=== PATIENT | female | born 2000 | race Caucasian/White ===

== ENCOUNTER 2025-09-10 18:53 | Emergency (ER) | payer OTHER, SELFPAY ==
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
[2025-09-10 19:09] VITALS: BP 134/79; PULSE 70; RESP 16; TEMP 36.5; O2SAT 98; BMI 34.0
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
--- OUTSIDE RECORDS SUMMARY | 2025-09-10 20:56 | XMS_ITS | Clinical Summary ---
Author Organization [facility] it Address [address] [place] [address] Care Team Providers Care Director Plans Name Role Phone CodybrookemadeleineMarianne burdick LUCITA Primary Care Provider Martha vailable Medications norgestimate-eth inyl estradioL (Tri-Lo-Norma) 0.18/0.215/0.25 mg-25 mcg per tablet TAKE 1 TABLET BY MOUTH DAILY 28 tablet 2 11/06/2024 Active Surgical History Surgery Date Site/Laterality Comments CHOLECYSTECTOMY 2019 PROCEDURE: ND LAPAROSCOPY SURG CHOLECYSTECTOMY; COMMENT: @ [facility] Medical History Medical History Date Comments Cholecystolithiasis DX:Cholecyst olithiasis Family History Medical History Relation Name Comments Breast cancer Maternal Grandmother No Known Problems Mother Other: Heart Attack Paternal Grandfather Lung cancer Paternal Grandmother Relation Name Status Comments Brother 1 1/2 dad side Alive Brother 2 Alive Brother 3 Alive Father Alive unknown hx Maternal Grandmother Mother Alive Paternal Grandfather Paternal Grandmother Sister 1 1/2 dad side Alive Sister 2 1/2 dad side Alive Social History Tobacco Use Types Packs/Day Years Used Date Smoking Tobacco: Never Smokeless Tobacco: Never Alcohol Use Standard Drinks/Week Comments No 0 (1 standard drink = 0.6 oz pur e alcohol) Comments Unknown Sex and Gender Information Value Date Recorded Sex Assigned at Not on file Legal Sex Female 8:27 AM EST Gender Identity Not on file Sexual Orientation Not on file Obstetrics History Last Filed Vital Signs Vital Sign Reading Time Taken Comments Blood Pressure 102/64 05/13/2023 1:39 PM EDT Pulse 65 05/13/2023 1:39 PM EDT Temperature - - Respiratory Rate - - Oxygen Saturation - - Inhaled Oxygen Concentration - - Weight 73.5 kg (162 lb) 05/13/2023 1:39 PM EDT Height 157.5 cm (5' 2 ) 05/13/2023 1:39 PM EDT Body Mass Index 29.63 05/13/2023 1:39 PM EDT Plan of Treatment Health Maintenance Due Date Last Done Comments Gonorrhea/Chlamydia Screening 2001 Meningococcal B Vaccine (2 o f 2 - Bexsero SCDM 2-dose series) 03/29/2020 09/28/2019 DTaP,Tdap,and Td Vaccines (1 - Tdap) 2020 Hepatitis B Vaccines (1 of 3 - 19+ 3-dose series) 2020 Cervical Cancer Screening: P ap Smear 2022 HIV Screening 09/12/2022 Hepatitis C Screening 09/12/2022 Social Influencers of Health Screening 09/12/2022 Depression Screening 10/10/2024 COVID-19 Vaccine (1 - 2024-2 6 season) 2025 Influenza Vaccine (#1) 2025 , 08/10/2017, 07/17/2015 RSV Immunization Adult Patients (1 - 1-dose 75+ series) 2076 HPV Vaccines Completed 07/17/2015, 12/18/2014 Hepatitis A Vaccines Completed 08/10/2017, 03/17/2016 Meningococcal ACWY Vaccine Completed 08/10/2017 HIB Vaccines Aged Out No longer eligi ble based on patient's age to complete this topic IPV Vaccines Aged Out No longer eligi ble based on patient's age to complete this topic MMR Vaccines Aged Out No longer eligi ble based on patient's age to complete this topic Pneumococcal Vaccine: Pediatrics (0 to 5 Years) and At-Risk Patients (6 to 49 Years) Aged Out No longer eligible b ased on patient's age to complete this topic RSV Immunization Patients Under 20 months Aged Out No longer eligible b ased on patient's age to complete this topic Varicella Vaccines Aged Out No longer eligible based on patient's age to complete this topic Care Teams Director Plans Relationship Specialty Start Date End Date Marianne Donis FNP [address] [place] [address] PCP - General 11/19/22
[2025-09-10 21:02] VITALS: BP 134/79; PULSE 70; RESP 16; TEMP 36.5; O2SAT 98
== END 2025-09-10 21:06 | disposition home or self-care (01) ==
PROVIDERS: Physician Assistant Medical; Emergency Provider Emergency Medicine; PCP Registered Nurse
DX: S06.0X0A Concussion without loss of consciousness, initial encounter (principal); V47.6XXA Car passenger injured in collision with fixed or stationary object in traffic accident, initial encounter; Y93.9 Activity, unspecified; Y92.411 Interstate highway as the place of occurrence of the external cause
CPT/HCPCS: 36415; 70450; 72125; 84702; 96372; 99283; 99284; J1885

== ENCOUNTER → 2025-09-10 19:10 | Outpatient (BNV) | payer OTHER, SELFPAY | PROVIDERS: PCP Registered Nurse; Visit Provider Student in an Organized Health Care Education/Training Program | DX: S09.90XA Unspecified injury of head, initial encounter (principal); V89.2XXA Person injured in unspecified motor-vehicle accident, traffic, initial encounter | CPT/HCPCS: 70450; 72125 ==